=== PATIENT | female | born 1990 | race Caucasian/White ===

== ENCOUNTER 2020-04-23 12:24 | Emergency (ER) | payer MEDICAID ==
[~2020-04-23] VITALS: Ht 160 cm; Wt 125.0 kg
[2020-04-23] MEDS ORDERED: IBUPROFEN 600MG TABLET PO ONE (12:45)
[2020-04-23] MEDS ORDERED: KETOROLAC 60MG/2ML VIAL IM ONE (15:45)
[2020-04-23] MEDS ORDERED: HYDROCODONE/ACETAMINOPHEN 5/325MG TABLET PO ONE ×2 (15:45)
[2020-04-23] MEDS ORDERED: BENZOCAINE/LANOLIN/ALOE VERA SPRAY TOP ONE (16:30)
[2020-04-23 16:40] VITALS: BP 147/89
== END 2020-04-23 17:07 | disposition home or self-care (01) ==
LOC: ER 12:24
DX: N75.0 Cyst of Bartholin's gland (principal); J45.909 Unspecified asthma, uncomplicated
CPT/HCPCS: 56740; 87070; 87205; 96372; 99284; J1885

== ENCOUNTER 2020-04-25 16:19 | Emergency (ER) | payer MEDICAID ==
[~2020-04-25] VITALS: Ht 162.6 cm; Wt 125.0 kg
[2020-04-25 16:30] VITALS: BP 159/95
[2020-04-25] MEDS ORDERED: DIPHENHYDRAMINE 25MG CAPSULE PO ONE (17:15)
[2020-04-25] MEDS ORDERED: FAMOTIDINE 20MG TABLET PO ONE (17:15)
[2020-04-25] MEDS ORDERED: PREDNISONE 20MG TABLET PO ONE (17:15)
== END 2020-04-25 18:26 | disposition home or self-care (01) ==
LOC: ER 16:19
DX: T36.1X5A Adverse effect of cephalosporins and other beta-lactam antibiotics, initial encounter (principal); J45.909 Unspecified asthma, uncomplicated; Y92.018 Other place in single-family (private) house as the place of occurrence of the external cause
CPT/HCPCS: 99284; J7512; Q0163